=== PATIENT | female | born 1990 | race Caucasian/White ===

== ENCOUNTER 2017-08-26 08:54 | Outpatient (CLI) | payer BC, MEDICAID ==
[~2017-08-26] VITALS: Ht 160 cm; Wt 54.9 kg
[~2017-08-26 08:54] MED LIST: MAGN400T6 PO; OXYC-202 PO; PREN1TAB86 PO
[2017-08-26 09:02] VITALS: BP 121/82
== END 2017-08-26 09:20 | disposition home or self-care (01) ==
LOC: PREOP 08:54
PROVIDERS: ATTEND Obstetrics & Gynecology
DX: Z01.818 Encounter for other preprocedural examination (principal); Z11.2 Encounter for screening for other bacterial diseases; O34.219 Maternal care for unspecified type scar from previous cesarean delivery; O99.019 Anemia complicating pregnancy, unspecified trimester; D64.9 Anemia, unspecified
CPT/HCPCS: 87081

== ENCOUNTER 2017-08-29 12:00 | Inpatient (IN) | payer BC, MEDICAID ==
[~2017-08-29] VITALS: Ht 160 cm; Wt 55.8 kg
[2017-08-29] MEDS ORDERED: ceFAZolin 2 GM/50 ML NS 50 ML IV ONE (12:15)
[2017-08-29] MEDS ORDERED: metroNIDAZOLE 500MG/100ML IVPB 100 ML IV ONE (12:15)
[2017-08-29] MEDS ORDERED: FAMOTIDINE 20MG/2ML IV (PEPCID) IV ONE (12:30)
[2017-08-29] MEDS ORDERED: CITRIC ACID/SOB CIT (BICITRA) 30 ML UDC PO ONE (12:30)
[2017-08-29] MEDS ORDERED: METOCLOPRAMIDE INJ 10 MG/2 ML (REGLAN) IV ONE (12:30)
[2017-08-29] MEDS ORDERED: CATHETER FLUSH 10 ML SYR IV PRN (12:30)
[2017-08-29] MEDS: LACTATED RINGERS 1,000 ML IV PRN ×3 (12:49→13:32)
[2017-08-29 12:55] LABS: BASOPHILS % (AUTO) 0 % (0-10); EOSINOPHILS # (AUTO) 0.1 10^3/uL (0.0-0.3); EOSINOPHILS % (AUTO) 1 % (0-10); LYMPHOCYTES # (AUTO) 1.8 X 10^3 (1.0-4.0); LYMPHOCYTES % (AUTO) 16 % (12-44); MEAN CORPUSCULAR HEMOGLOBIN 28 PG (25-34); MEAN CORPUSCULAR HGB CONC 33 G/DL (32-36); MEAN CORPUSCULAR VOLUME 84 FL (80-99); MEAN PLATELET VOLUME 9.7 FL (7.4-10.4); MONOCYTES % (AUTO) 9 % (0-12); NEUTROPHILS # (AUTO) 8.4 X 10^3 (1.8-7.8); NEUTROPHILS % (AUTO) 75 % (42-75); PLATELET COUNT 244 10^3/uL (130-400); RED BLOOD COUNT 3.74 10^6/uL (4.35-5.85); RED CELL DISTRIBUTION WIDTH 12.5 % (10.0-14.5); WHITE BLOOD COUNT 11.3 10^3/uL (4.3-11.0)
[2017-08-29] MEDS ORDERED: fentaNYL INJECTION 100 MCG/2 ML AMP ONE (13:42)
--- NOTE | 2017-08-29 13:53 | History & Physical ---
History and Physical Date Seen by Provider: Aug 29, 2017 Time Seen by Provider: 13:51 this patient is a 26-year-old as a result of one set of twins A for likely Rachelle due date of 2216 putting her now at 39 weeks gestation. She does have mild oligohydramnios she has had previous C-sections 2 and she also is tubal removal to decrease her risk of long-term for pelvic cancer. She understands that the inherent side effect is her loss of fertility. Denies ruptured membranes or bleeding she is having some contractions her GBS culture was negative . Allergies are none Medications are vitamins and aspirin a day Medical social and surgical history is operative arm record A GED examiner normal Neck is supple with no lymphadenopathy no thyromegaly Abdomen is gravid soft nontender nondistended extremities show no clubbing cyanosis. there is no Homans sign. Pelvic exam is deferred assessment and plan term at 39 weeks gestation presenting for repeat delivery. She has mild oligohydramnios and she has requested bilateral salpingectomy as a risk reducing strategies surgical risk [facility] follow-up have been fully discussed all of her questions were answered and she agreed to proceed term with oligo at 39 weeks gestation and previous and request for respirations salpingectomy Allergies and Home Medications Allergies Coded Allergies: latex (Unverified Allergy, Mild, 07/02/17) Home Medications Vit W-Ca,Fe,FA(<1 mg) 1 Each Tablet, 1 EACH PO DAILY, (Reported) KALEB SANCHEZ MD Aug 29, 2017 1:53 pm
--- NOTE | 2017-08-29 13:55 | Progress Note-Post Operative ---
Post-Operative Progess Note Surgeon (s)/Software Asset Manager (s) Surgeon KALEB SANCHEZ MD Software Asset Manager: per OR report Pre-Operative Diagnosis repeat delivery, oligohydramnios, request for RRS Post-Operative Diagnosis same Procedure & Operative Findings Date of Procedure 08/29/17 Procedure Performed/Findings repeat delivery and bilateral salpingectomy Anesthesia Type spinal Estimated Blood Loss Estimated blood loss (mL): see dictated op note Specimens/Packing Specimens Removed placenta and umbilical cord as well as both fallopian tubes Packing: none KALEB SANCHEZ MD Aug 29, 2017 13:55
[2017-08-29] MEDS ORDERED: ONDANSETRON 4 MG/2 ML (SDV) Z0FRAN IVP PRN ×2 (14:00→15:00)
[2017-08-29] MEDS ORDERED: PROMETHAZINE INJ 25 MG/ML (PHENERGAN) AMP IM PRN (14:00)
[2017-08-29] MEDS ORDERED: TETANUS,DIPTH,PERTUSS P/F (BOOSTRIX) 0.5 ML VIAL IM ONE (14:00)
[2017-08-29] MEDS ORDERED: MEASLES,MUMPS,RUBELLA 1 EA INJ SC ONE (14:00)
[2017-08-29] MEDS ORDERED: MEPERIDINE (DEMEROL) INJ 100 MG/ML IM PRN (14:00)
[2017-08-29] MEDS ORDERED: D5 LR IV SOLUTION 1,000 ML IV ONE (14:01)
[2017-08-29] MEDS ORDERED: PHENYLEPHRINE 100 MCG/ML 10 ML (ANESTHESIA) SYR ONE (14:09)
[2017-08-29] MEDS: KETOROLAC 30 MG/ML VIAL IVP SCH ×2 (15:03→20:55)
[2017-08-29] MEDS: OXYTOCIN/NORMAL SALINE 500 ML IV SCH (15:55)
[2017-08-29 16:00] VITALS: BP 96/64
[2017-08-29] MEDS ORDERED: INFLUENZA TRIvalent 2017-2018 0.5 ML/45 MCG SYR IM ONE (16:45)
[2017-08-29] MEDS: oxyCODONE/APAP 10/325MG (PERCOCET 10) TABLET PO PRN ×2 (17:15→22:44)
[2017-08-29 20:00] VITALS: BP 116/71
[2017-08-29] MEDS: DOCUSATE SODIUM 100 MG (COLACE) CAP PO SCH (20:54)
[2017-08-30] VITALS: BP 106/58
--- NOTE | 2017-08-30 00:28 | OPERATIVE REPORT ---
DATE OF SERVICE: 08/29/2017 PREOPERATIVE DIAGNOSIS: Term at 39 weeks' gestation with previous C-sections x2 and with mild oligohydramnios and with request for risk reducing salpingectomy. POSTOPERATIVE DIAGNOSIS: Term at 39 weeks' gestation with previous C-sections x2 and with mild oligohydramnios and with request for risk reducing salpingectomy. OPERATIVE PROCEDURE: Repeat low transverse delivery and bilateral salpingectomy for reduction of ovarian cancer risk. OPERATIVE DESCRIPTION: With the patient in supine position under satisfactory spinal anesthesia, she was prepped and draped in the usual fashion for abdominal surgery. Urine bladder was drained via Mckinney catheter to be in a drainage. A repeat Pfannenstiel incision made through skin with a scalpel. The patient's abdomen entered in the usual manner. Bladder retractor placed in position, clean scalpel used to make a 4 cm hysterotomy incision transversely across loading segment. The incision was extended by blunt dissection releasing a relatively small amount of clear amniotic fluid. The was delivered via the uterine incision in the usual manner with fundal pressure. The infant had spontaneous cry, was bulb suctioned on delivery of the head and again on completion of delivery a nuchal cord was easily released. The umbilical cord was doubly clamped and cut and the infant passed to the pediatric nurse in attendance for delivery. Cord bloods were obtained. The placenta delivered spontaneously. She also was normal with a 3-vessel cord. The had Apgars of 8, 9 at 1 and 5 respectively. Weight was 6 pounds and 8 ounces. time was 1415. Cord blood pH value of 7.27. The placenta actually was a circumvallate placenta and it was sent to pathology for permanent section. The uterus was exteriorized, the anterior wiped clean with a wet laparotomy sponge. Uterine incision then closed with running locked suture of 2-0 Vicryl. Hemostasis was complete. The right fallopian tube was grasped and elevated. The mesosalpinx was divided with cautery from base to the ovary and then each end was ligated, ligated at the base of the fallopian tube and the attachment of the fimbria to the ovary and then the fallopian tube was resected and sent to pathology for permanent section. Same procedure was performed on the left with the same result. The uterus was now returned to abdominal cavity. All blood clot debris removed from the abdominal cavity. Sponge and needle counts were correct. Hemostasis assured. Anterior parietal peritoneum was closed with running suture of 2-0 Vicryl. Rectus muscles were closed and sutured well. Rectus fascia was closed with 2-0 Vicryl. Subcutaneous tissue was closed with 2-0 Vicryl and the skin was stapled. Sponge and needle counts were correct at the end of the procedure. Estimated blood loss was around 500 mL. The patient tolerated the procedure well and was transferred to recovery in stable condition. was taken stable to the full term nursery under the care of the pediatric nurse. Job ID: [id number] DocumentID: [id number] Dictated Date: 08/29/2017 14:41:57 Logging Assistant Date: 08/30/2017 00:28:06 Dictated By: KALEB SANCHEZ MD
[2017-08-30] MEDS: KETOROLAC 30 MG/ML VIAL IVP SCH (03:14)
[2017-08-30 04:00] VITALS: BP 116/76
[2017-08-30] MEDS: oxyCODONE/APAP 10/325MG (PERCOCET 10) TABLET PO PRN ×2 (06:03→18:42)
[2017-08-30] MEDS: OXYTOCIN/NORMAL SALINE 500 ML IV SCH (07:58)
[2017-08-30] MEDS ORDERED: IBUPROFEN 800 MG (MOTRIN) TAB PO ONE (08:10)
[2017-08-30] MEDS ORDERED: TETANUS,DIPTH,PERTUSS P/F (BOOSTRIX) 0.5 ML VIAL IM ONE (08:10)
[2017-08-30 08:16] VITALS: BP 108/67
[2017-08-30] MEDS: IBUPROFEN 800 MG (MOTRIN) TAB PO SCH ×3 (08:19→20:50)
[2017-08-30] MEDS: DOCUSATE SODIUM 100 MG (COLACE) CAP PO SCH ×2 (08:19→20:50)
--- NOTE | 2017-08-30 08:42 | Progress Note-Standard ---
Standard Progress Note Progress Notes/Assess & Plan Date Seen by Provider: Aug 30, 2017 Time Seen by Provider: 08:41 Progress/Assessment & Plan this patient is without complaint. She is ablating, voiding, told feel, has good pain control. Patient denies chest pain, denies shortness breath, denies nausea vomiting, denies headache. Vital Signs Date Time Temp Pulse Resp B/P (MAP) Pulse Ox O2 Delivery O2 Flow Rate FiO2 08/30/17 04:00 97.2 73 16 116/76 (89) 97 Room Air 08/30/17 00:00 98.0 64 16 106/58 (74) 100 Room Air 08/29/17 20:00 98.9 74 16 116/71 (86) 96 Room Air 08/29/17 16:00 97.4 60 16 96/64 (75) 98 Room Air 08/29/17 16:00 97.4 60 16 96/64 (75) 98 Room Air I & O 08/30/17 06:59 Intake Total 4750 ml Output Total 1900 ml Balance 2850 ml vital signs are stable. Patient is afebrile. Fundus is firm below the umbilicus and nontender. The incision is clean dry and intact. Extremities show no clubbing cyanosis. There is no Homans sign. Assessment and plan postoperative day number 1 status post repeat and RRS doing well. Plan is routine convalescence care today and likely discharge home tomorrow KALEB SANCHEZ MD Aug 30, 2017 8:42 am
[2017-08-30] MEDS ORDERED: IBUP-1780 PO (08:47)
[2017-08-30] MEDS ORDERED: DOCU100C37 PO (08:47)
[2017-08-30] MEDS ORDERED: OXYC-465 PO (08:47)
--- NOTE | 2017-08-30 08:48 | Discharge Instructions ---
Discharge Instructions Discharge Medications New, Converted or Re-Newed RX: RX on Chart Patient Instructions Patient Instructions: as directed Return to The Hospital For: as directed Activity & Diet Discharge Diet: No Restrictions Activity as Tolerated: No Orders-Post D/C & Referrals Follow Up Appt: RTC on , September 04, 2017 at 930 a.m. for incision check. Call to make follow up appt. for patient in 4 weeks. Wound Care: Remove debo, apply benzoin and steri strips. Activity Per routine post instructions. Please call in RX to patient pharmacy. Diet as tolerated Patient may shower or tub bathe as desired. Continue home meds KALEB SANCHEZ MD Aug 30, 2017 8:48 am
--- NOTE | 2017-08-30 12:33 | Anesthesia-Regional Post-Op ---
Regional Patient Condition Mental Status: Alert, Oriented x3 Circulation: Same as Pre-Op Headache: Absent Sensation: Full Recovery Motor Block: Absent Post Op Complications Complications None Follow Up Care/Instructions Patient Instructions None needed. Anesthesia/Patient Condition Patient is doing well, no complaints, stable vital signs, no apparent adverse anesthesia problems. No complications reported per nursing. D/C home per [facility] Criteria: No DIO MARTINEZ CRNA Aug 30, 2017 12:33
[2017-08-30 14:44] VITALS: BP 99/63
[2017-08-30 21:10] VITALS: BP 121/67
[2017-08-31 03:00] VITALS: BP 96/61
[2017-08-31] MEDS: IBUPROFEN 800 MG (MOTRIN) TAB PO SCH ×2 (03:00→09:37)
[2017-08-31] MEDS: oxyCODONE/APAP 10/325MG (PERCOCET 10) TABLET PO PRN (03:00)
[2017-08-31 09:15] VITALS: BP 106/67
[2017-08-31] MEDS: DOCUSATE SODIUM 100 MG (COLACE) CAP PO SCH (09:37)
--- NOTE | 2017-08-31 10:13 | Progress Note-Standard ---
Standard Progress Note Progress Notes/Assess & Plan Date Seen by Provider: Aug 31, 2017 Time Seen by Provider: 10:12 Progress/Assessment & Plan this patient is without complaint. She is ablating, voiding, told feel, has good pain control. Patient denies chest pain, denies shortness breath, denies nausea vomiting, denies headache. Vital Signs Date Time Temp Pulse Resp B/P (MAP) Pulse Ox O2 Delivery O2 Flow Rate FiO2 08/30/17 04:00 97.2 73 16 116/76 (89) 97 Room Air 08/30/17 00:00 98.0 64 16 106/58 (74) 100 Room Air 08/29/17 20:00 98.9 74 16 116/71 (86) 96 Room Air 08/29/17 16:00 97.4 60 16 96/64 (75) 98 Room Air 08/29/17 16:00 97.4 60 16 96/64 (75) 98 Room Air I & O 08/30/17 06:59 Intake Total 4750 ml Output Total 1900 ml Balance 2850 ml vital signs are stable. Patient is afebrile. Fundus is firm below the umbilicus and nontender. The incision is clean dry and intact. Extremities show no clubbing cyanosis. There is no Homans sign. Assessment and plan postoperative day number 1 status post repeat and RRS doing well. Plan is routine convalescence care today and likely discharge home tomorrow August 31, 2017 Patient is without complaint. She is ambulating, voiding, tolerating by mouth, has good pain control. Patient is requesting discharge home. Vital Signs Date Time Temp Pulse Resp B/P (MAP) Pulse Ox O2 Delivery O2 Flow Rate FiO2 08/31/17 09:15 99.1 82 18 106/67 (80) 100 Room Air 08/31/17 03:00 98.6 55 18 96/61 (73) 98 Room Air 08/30/17 21:10 98.9 83 18 121/67 (85) 98 Room Air 08/30/17 14:44 99.3 78 18 99/63 (75) 99 Room Air I & O 08/31/17 07:00 Intake Total 800 ml Output Total 2200 ml Balance -1400 ml vital signs are stable. Patient is afebrile. The fundus is firm below the umbilicus and nontender. The incision is clean dry and intact. The abdomen is benign. extremities show no clubbing cyanosis. There is no Homans sign. There is some pretibial pitting edema that is normal. assessment and plan postoperative day number 2 status post repeat doing well. Plan is for discharge home with follow-up in clinic Final Diagnosis repeat delivery KALEB SANCHEZ MD Aug 31, 2017 10:13 am
[2017-08-31 14:45] VITALS: BP 106/67
== END 2017-08-31 14:45 | disposition home or self-care (01) | DRG 765 ==
LOC: LDRP 12:00
PROVIDERS: ADMIT Obstetrics & Gynecology; ATTEND Obstetrics & Gynecology
PROC: 0UT70ZZ Resection of Bilateral Fallopian Tubes, Open Approach (ICD-10-PCS; 2017-08-29)
PROC: 10D00Z1 Extraction of Products of Conception, Low, Open Approach (ICD-10-PCS; principal; 2017-08-29 13:53)
DX: O34.211 Maternal care for low transverse scar from previous cesarean delivery (principal); O41.03X0 Oligohydramnios, third trimester, not applicable or unspecified; O69.81X0 Labor and delivery complicated by cord around neck, without compression, not applicable or unspecified; Z3A.39 39 weeks gestation of pregnancy; Z37.0 Single live birth; Z23 Encounter for immunization
CPT/HCPCS: 36415; 85025; 86850; 86900; 86901; 90715; 94664

== ENCOUNTER → 2020-11-21 | Outpatient (CLI) | payer SELFPAY ==
[~2020-11-21] MED LIST changes: +DOCU100C37 PO; +IBUP-1780 PO; -MAGN400T6 PO; +MAGN400T8 PO; -OXYC-202 PO; +OXYC-556 PO; +OXYC1TAB12 PO
--- NOTE | 2020-11-21 10:21 | Diagnostic Imaging Report ---
INDICATION: Neck pain. COMPARISON: None available. TECHNIQUE: Three radiographs of the cervical spine dated 11/21/2020. FINDINGS: Alignment of the cervical spine is well maintained. Vertebral body heights are well-maintained. Disc space heights are well-maintained. No acute fracture or dislocation. No destructive osseous process. The dens is unremarkable. Lateral masses are well seated. Prevertebral soft tissues are unremarkable. IMPRESSION: Unremarkable examination without acute osseous abnormality. Dictated by: Dictated on workstation # [id number]
== END ==
LOC: RAD FS 09:07
PROVIDERS: ATTEND Nurse Practitioner Family
DX: M54.2 Cervicalgia (principal); Z87.39 Personal history of other diseases of the musculoskeletal system and connective tissue
CPT/HCPCS: 72040

== ENCOUNTER → 2022-03-22 | Outpatient (CLI) | payer OTHER ==
[~2022-03-22] MED LIST changes: -MAGN400T8 PO; +MGX400T PO
== END ==
LOC: CARD 14:00
PROVIDERS: ATTEND Physician Assistant
DX: F41.9 Anxiety disorder, unspecified (principal); R00.2 Palpitations
CPT/HCPCS: 93225; 93226; 93306